=== PATIENT | female | born 1975 | race Caucasian/White ===

== ENCOUNTER 2022-10-10 09:40 | Emergency (ER) | payer OTHER ==
[2022-10-10 10:18] LABS: Absolute Lymphocytes (CBC) 2.2 K/uL (0.7-4.9); Lymphocytes % 14.8 % (15.3-44.8); MPV 7.1 fL (7.6-11.3)
[2022-10-10 10:20] LABS: Urine Blood Negative (Negative); Urine Glucose Negative (Negative); Urine Protein Trace (Negative); Urine Specific Gravity 1.025 (1.005-1.030); Urine pH 5.5 (5.0-7.0)
[2022-10-10 10:30] LABS: Urine Specific Gravity/Preg 1.025 (1.005-1.030)
[2022-10-10 10:36] LABS: Albumin 3.7 g/dL (3.4-5.0); Bilirubin Total 0.3 mg/dL (0.2-1.0); Potassium 3.3 mmol/L (3.5-5.1); Protein, Total 6.9 g/dL (6.4-8.2)
--- NOTE | 2022-10-10 11:01 | RAD REPORT ---
EXAM DESCRIPTION: CTAbdomen Pelvis W Contrast - 10/10/2022 10:49 am CLINICAL HISTORY: diarrhea, abdominal pain COMPARISON: No comparisons TECHNIQUE: CT of the abdomen and pelvis was performed with IV contrast. All CT scans are performed using dose optimization technique as appropriate and may include automated exposure control or mA/KV adjustment according to patient size. FINDINGS: Lower chest: No acute abnormality. Liver: Hepatic steatosis. Biliary: Cholecystectomy. No biliary ductal dilatation. Stomach: No significant focal abnormality. Duodenum: No significant focal abnormality. Pancreas: No significant abnormality. Spleen: No significant abnormality. Adrenal: No suspicious lesions. Kidney/ureter: No hydronephrosis. No renal calculi. Retroperitoneum: No retroperitoneal adenopathy. Vascular: No aneurysm. Bowel: Fluid present within the ascending and transverse colon. This can reflect impending diarrhea. No bowel obstruction identified.. Normal appendix. Peritoneum: Pelvic free fluid. Bladder: Grossly unremarkable. Reproductive: No adnexal masses. Bones: No acute fracture. Other: n/a IMPRESSION: No acute intra-abdominal or pelvic finding. Normal appendix. Pelvic free fluid which may be physiologic.
[2022-10-10] MEDS ORDERED: Ringers Lactate 1,000 ML IV ONE (12:08)
--- NOTE | 2022-10-10 13:13 | ER ---
Nurse's Notes [facility] Name: Stacey Berg Age: 47 yrs Sex: Female : 1975 Arrival Date: 10/10/2022 Time: 09:44 Bed 11 Private MD: Diagnosis: Diarrhea, unspecified Presentation: 10/10 10:23 Chief complaint: Patient states: Diarrhea x 1 week, vomiting yesterday, nausea, jl7 decreased output, Left flank pain. Coronavirus screen: Vaccine status: Patient reports receiving the 2nd dose of the covid vaccine. Ebola Screen: No symptoms or risks identified at this time. Initial Sepsis Screen: Does the patient meet any 2 criteria? No. Patient's initial sepsis screen is negative. Does the patient have a suspected source of infection? No. Patient's initial sepsis screen is negative. Risk Assessment: Do you want to hurt yourself or someone else? Patient reports no desire to harm self or others. Onset of symptoms was October 03, 2022. 10:23 Method Of Arrival: Ambulatory jl7 10:23 Acuity: MILIND 3 jl7 Triage Assessment: 10:25 General: Appears in no apparent distress. uncomfortable, Behavior is calm, cooperative, jl7 appropriate for age. Pain: Complains of pain in left flank Pain currently is 2 out of 10 on a pain scale. GI: Reports diarrhea, nausea, vomiting. 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 jl7 Historical: - Allergies: 10:25 No Known Allergies; jl7 - Home Meds: 10:25 lisinopril 20 mg Oral tab 1 tab once daily [Active]; pantoprazole 40 mg oral TbEC 1 tab jl7 2 times per day [Active]; trazodone 50 mg Oral tab 1 tab once daily [Active]; fluoxetine 40 mg Oral cap 1 cap once daily [Active]; zonisamide 100 mg oral cap 1 cap once daily [Active]; Vitamin D Oral [Active]; atorvastatin 10 mg oral tab 1 tab once daily [Active]; [place] Thyroid 60 mg Oral tab 1 tab once daily [Active]; selenium 200 mcg oral tab [Active]; ashwagandha root extract oral [Active]; metoprolol tartrate 50 mg Oral tab 1 tab once daily [Active]; - PMHx: 10:25 Congestive heart failure; Migraine; Depressive disorder; Hypertensive disorder; jl7 Estefania's disease; - Immunization history:: Client reports receiving the 2nd dose of the Covid vaccine. - Social history:: Smoking status: Patient denies any tobacco usage or history of. Screenin:45 [facility] ED Fall Risk Assessment (Adult) History of falling in the last 3 months, ss including since admission No falls in past 3 months (0 pts). Abuse screen: Denies threats or abuse. Denies injuries from another. Nutritional screening: No deficits noted. Tuberculosis screening: Never had TB. Assessment: 10:45 General: Appears in no apparent distress. Neuro: Level of Consciousness is awake, ss alert, obeys commands, Oriented to person, place, time, situation. Respiratory: Airway is patent Respiratory effort is even, unlabored, Respiratory pattern is regular, symmetrical. GI: Reports diarrhea. Derm: Skin is pink, warm \T\ dry. normal. 13:25 Reassessment: Patient appears in no apparent distress at this time. Patient and/or ss family updated on plan of care and expected duration. Pain level reassessed. Patient is alert, oriented x 3, equal unlabored respirations, skin warm/dry/pink. Vital Signs: 10:20 BP 126 / 96; Pulse 81; Temp 97.5; Pulse Ox 98% on R/A; Weight 99.79 kg; Height 5 ft. 5 jl7 in. (165.10 cm); Pain 2/10; 10:32 Resp 17; jl7 12:56 BP 104 / 69; Pulse 63; Resp 18; Pulse Ox 98% on R/A; Pain 3/10; em1 10:20 Body Mass Index 36.61 (99.79 kg, 165.10 cm) jl7 ED Course: 09:44 Patient arrived in ED. am2 09:44 Atul Barrios PA is PHCP. [facility] 09:44 Rogelio Cooper DO is Attending Physician. [facility] 10:14 Urine obtained. Urine : negative. Labs ordered per protocol. Drawn by ED staff.jl7 10:15 Initial lab(s) drawn, by ne, sent to lab. Inserted saline lock: 20 gauge in right jl7 antecubital area, using aseptic technique. 10:25 Triage completed. jl7 10:25 Arm band placed on right wrist. jl7 10:28 Abdelrahman Desai MD is Attending Physician. [facility] 10:32 CBC with Diff Sent. jl7 10:32 CMP Sent. jl7 10:32 Lipase Sent. jl7 10:32 Urine --Ancillary (enter results) Sent. jl7 10:45 Patient has correct armband on for positive identification. ss 10:45 No provider procedures requiring assistance completed. IV discontinued, intact, ss bleeding controlled, No redness/swelling at site. Pressure dressing applied. 12:08 Surekha Washington, RN is Primary Nurse. ss Administered Medications: 12:08 Drug: Lactated Ringers Solution 1000 ml Route: IV; Rate: 250 ml/hr; Site: right ss antecubital; Medication: 10:45 VIS not applicable for this client. Outcome: 13:13 Discharge ordered by . [facility] 13:27 Discharged to home ambulatory. ss 13:27 Condition: good 13:27 Discharge instructions given to patient, Instructed on discharge instructions, follow up and referral plans. Demonstrated understanding of instructions, follow-up care. 13:29 Patient left the ED. Signatures: Atlu Barrios PA PA Guillaume Lopes em1 Surekha Washington, RN RN ss Palmer Ruiz RN RN jl7 Candy Miranda am2
--- NOTE | 2022-10-10 13:13 | EDPHYS ---
Physician Documentation [facility] Name: Stacey Berg Age: 47 yrs Sex: Female : 1975 Arrival Date: 10/10/2022 Time: 09:44 Bed 11 Private MD: ED Physician Abdelrahman Desai HPI: 10/10 09:59 This 47 yrs old Female presents to ER via Ambulatory with complaints of Diarrhea, jmm dehydration. 09:59 The patient presents to the emergency department with nausea, diarrhea. Onset: The jmm symptoms/episode began/occurred gradually, 1 week(s) ago. Possible causes: unknown. The symptoms are aggravated by nothing. The symptoms are alleviated by nothing. Is a 47-year-old female with history of CHF, migraines, hypertension the presents emerged part with complaints of diarrhea, right flank pain, fatigue beginning approximately 1 week ago. Denies any vomiting but states having nausea.. 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 jl7 Historical: - Allergies: 10:25 No Known Allergies; jl7 - Home Meds: 10:25 lisinopril 20 mg Oral tab 1 tab once daily [Active]; pantoprazole 40 mg oral TbEC 1 tab jl7 2 times per day [Active]; trazodone 50 mg Oral tab 1 tab once daily [Active]; fluoxetine 40 mg Oral cap 1 cap once daily [Active]; zonisamide 100 mg oral cap 1 cap once daily [Active]; Vitamin D Oral [Active]; atorvastatin 10 mg oral tab 1 tab once daily [Active]; [place] Thyroid 60 mg Oral tab 1 tab once daily [Active]; selenium 200 mcg oral tab [Active]; ashwagandha root extract oral [Active]; metoprolol tartrate 50 mg Oral tab 1 tab once daily [Active]; - PMHx: 10:25 Congestive heart failure; Migraine; Depressive disorder; Hypertensive disorder; jl7 Estefania's disease; - Immunization history:: Client reports receiving the 2nd dose of the Covid vaccine. - Social history:: Smoking status: Patient denies any tobacco usage or history of. ROS: 09:59 Constitutional: Positive for body aches, fatigue. jmm 09:59 Respiratory: Positive for 09:59 Abdomen/GI: Positive for abdominal pain, nausea. 09:59 All other systems are negative. Exam: 09:59 Constitutional: This is a well developed, well nourished patient who is awake, alert, jmm and in no acute distress. Head/Face: atraumatic. Eyes: EOMI, no conjunctival erythema appreciated ENT: Moist Mucus Membranes Neck: Trachea midline, Supple Chest/axilla: Normal chest wall appearance and motion. Cardiovascular: Regular rate and rhythm. No edema appreciated Respiratory: Normal respirations, no respiratory distress appreciated 09:59 Back: Normal ROM Skin: General appearance color normal MS/ Extremity: Moves all extremities, no obvious deformities appreciated, no edema noted to the lower extremities Neuro: Awake and alert Psych: Behavior is normal, Mood is normal, Patient is cooperative and pleasant 09:59 Abdomen/GI: Inspection: abdomen appears normal, Bowel sounds: normal, Palpation: soft, mild abdominal tenderness, in the anterior aspect of right lateral abdomen. Vital Signs: 10:20 BP 126 / 96; Pulse 81; Temp 97.5; Pulse Ox 98% on R/A; Weight 99.79 kg; Height 5 ft. 5 jl7 in. (165.10 cm); Pain 2/10; 10:32 Resp 17; jl7 12:56 BP 104 / 69; Pulse 63; Resp 18; Pulse Ox 98% on R/A; Pain 3/10; em1 10:20 Body Mass Index 36.61 (99.79 kg, 165.10 cm) jl7 MDM: 09:59 Patient medically screened. [facility] 13:12 Data reviewed: vital signs, nurses notes. I considered the following discharge [facility] prescriptions or medication management in the emergency department Medications were administered in the Emergency Department. See MAR. Counseling: I had a detailed discussion with the patient and/or guardian regarding: the historical points, exam findings, and any diagnostic results supporting the discharge/admit diagnosis, lab results, radiology results, the need for outpatient follow up, to return to the emergency department if symptoms worsen or persist or if there are any questions or concerns that arise at home. 10/10 09:59 Order name: CBC with Diff [facility] 10/10 09:59 Order name: CMP [facility] 10/10 09:59 Order name: Lipase [facility] 10/10 10:20 Order name: CBC with Automated Diff; Complete Time: 10:29 EDMS 10/10 10:20 Order name: Urine Dipstick-Ancillary; Complete Time: 10:29 EDMS 10/10 10:21 Order name: Urine --Ancillary (enter results) em1 10/10 09:59 Order name: IV Saline Lock; Complete Time: 10:[address] [facility] 10/10 09:59 Order name: Labs collected and sent; Complete Time: 10:[address] [facility] 10/10 10:30 Order name: Urine --Ancillary; Complete Time: 10:32 [facility] 10/10 10:36 Order name: Comprehensive Metabolic Panel; Complete Time: 10:38 [facility] 10/10 10:36 Order name: Lipase; Complete Time: 10:38 [facility] 10/10 10:38 Order name: CT Abd/Pelvis - IV Contrast Only [facility] 10/10 11:02 Order name: CT; Complete Time: 11:02 [facility] 10/10 10:00 Order name: Urine Dipstick-Ancillary (obtain specimen); Complete Time: 10:[address] [facility] Administered Medications: 12:08 Drug: Lactated Ringers Solution 1000 ml Route: IV; Rate: 250 ml/hr; Site: right ss antecubital; Disposition: 18:04 Co-signature as Attending Physician, Abdelrahman Desai MD I reviewed the patient's care rn provided by the Advanced Practice Provider and agree with the diagnosis and treatment plan. Disposition Summary: 10/10/22 13:13 Discharge Ordered Location: Home [facility] Condition: Stable [facility] Diagnosis - Diarrhea, unspecified [facility] Followup: [facility] - With: Private Physician - When: 2 - 3 days - Reason: Recheck today's complaints, Continuance of care, Re-evaluation by your physician Discharge Instructions: - Discharge Summary Sheet [facility] - Food Choices to Help Relieve Diarrhea, Adult [facility] Forms: - Medication Reconciliation Form [facility] - Thank You Letter [facility] - Antibiotic Education [facility] - Prescription Opioid Use [facility] - Work release form Prescriptions: - dicyclomine 20 mg Oral Tablet - take 1 tablet by ORAL route 4 times per day As needed; 30 tablet; Refills: 0, [facility] Product Selection Permitted - ondansetron 4 mg Oral tablet,disintegrating - take 1 tablet by ORAL route every 4-6 hours As needed; 20 tablet; Refills: 0, [facility] Product Selection Permitted - Lomotil 2.5-0.025 mg Oral Tablet - take 1 tablet by ORAL route every 6 hours As needed; 20 tablet; Refills: 0, [facility] Product Selection Permitted Signatures: Dispatcher [employer] Atul Luo PA PA jmm Nieto, Roman, MD MD rn Smirch, Shelby RN RN ss Palmer Ruiz RN RN jl7
[2022-10-10 14:03] VITALS: TEMP 97.5; O2SAT 98
[2022-10-10 14:05] VITALS: BP 104/69
== END 2022-10-10 13:29 | disposition home or self-care (01) ==
LOC: ER 09:40
DX: R19.7 Diarrhea, unspecified (principal); R53.83 Other fatigue; I10 Essential (primary) hypertension; I50.9 Heart failure, unspecified
CPT/HCPCS: 85025; 36415; 81025; 81003; 83690; 80053; 74177; Q9967; J7120